=== PATIENT | female | born 1930 | race Caucasian/White ===

== ENCOUNTER → 2018-06-17 | Outpatient (CLI) | payer OTHER | LOC: RAD 11:38 | DX: J98.4 Other disorders of lung (principal); G70.00 Myasthenia gravis without (acute) exacerbation; I10 Essential (primary) hypertension; Z95.810 Presence of automatic (implantable) cardiac defibrillator ==

== ENCOUNTER → 2019-09-06 | Outpatient (CLI) | payer OTHER | LOC: SJCVCIMAG 10:59 | PROVIDERS: ATTEND Internal Medicine | DX: I07.1 Rheumatic tricuspid insufficiency (principal); I11.9 Hypertensive heart disease without heart failure; I48.0 Paroxysmal atrial fibrillation; I44.30 Unspecified atrioventricular block; E78.5 Hyperlipidemia, unspecified; G47.33 Obstructive sleep apnea (adult) (pediatric); G70.00 Myasthenia gravis without (acute) exacerbation; Z95.0 Presence of cardiac pacemaker ==

== ENCOUNTER → 2020-03-14 | Outpatient (CLI) | payer OTHER | LOC: SJCVC 10:20 | PROVIDERS: ATTEND Internal Medicine | DX: R94.31 Abnormal electrocardiogram [ECG] [EKG] (principal); I48.0 Paroxysmal atrial fibrillation; I44.30 Unspecified atrioventricular block; I10 Essential (primary) hypertension; G47.33 Obstructive sleep apnea (adult) (pediatric); G70.00 Myasthenia gravis without (acute) exacerbation; E78.00 Pure hypercholesterolemia, unspecified; Z95.0 Presence of cardiac pacemaker; Z79.899 Other long term (current) drug therapy; Z79.891 Long term (current) use of opiate analgesic ==

== ENCOUNTER → 2020-09-11 | Outpatient (CLI) | payer OTHER | LOC: SJCVC 10:32 | PROVIDERS: ATTEND Internal Medicine | DX: R94.31 Abnormal electrocardiogram [ECG] [EKG] (principal); I48.0 Paroxysmal atrial fibrillation; I44.30 Unspecified atrioventricular block; I10 Essential (primary) hypertension; E78.5 Hyperlipidemia, unspecified; G47.33 Obstructive sleep apnea (adult) (pediatric); G70.00 Myasthenia gravis without (acute) exacerbation; K21.9 Gastro-esophageal reflux disease without esophagitis; E78.00 Pure hypercholesterolemia, unspecified; E03.9 Hypothyroidism, unspecified; Z95.0 Presence of cardiac pacemaker; Z79.01 Long term (current) use of anticoagulants; Z79.899 Other long term (current) drug therapy ==

== ENCOUNTER → 2021-03-26 | Outpatient (CLI) | payer OTHER | LOC: SJCVCIMAG 07:45 | PROVIDERS: ATTEND Internal Medicine Cardiovascular Disease | DX: R94.31 Abnormal electrocardiogram [ECG] [EKG] (principal); I48.0 Paroxysmal atrial fibrillation; E78.5 Hyperlipidemia, unspecified; I10 Essential (primary) hypertension; G70.00 Myasthenia gravis without (acute) exacerbation; K21.9 Gastro-esophageal reflux disease without esophagitis; E78.00 Pure hypercholesterolemia, unspecified; E03.9 Hypothyroidism, unspecified; G47.33 Obstructive sleep apnea (adult) (pediatric); Z95.0 Presence of cardiac pacemaker; Z68.41 Body mass index [BMI] 40.0-44.9, adult; Z79.899 Other long term (current) drug therapy ==

== ENCOUNTER → 2021-04-12 | Outpatient (CLI) | payer OTHER ==
[~2021-04-12] VITALS: Ht 160 cm; Wt 111.4 kg
[~2021-04-12] MED LIST: AZELASTINE137 MCG/0. NASAL; CALCIUM CARBON600 MG PO; CARVEDILOL6.25 M1 PO; DETROL LA4 MG PO; FUROSEMIDE 20 M20 MG PO; LEVOTHYROXINE125 MC1 PO; LISINOPRIL20 MG PO; LORATIDINE 10 M10 M1 PO; MIRALAX17 GM PO; PREDNISOLONE 5 M5 M1 PO; PRESERVISION A1 EAC2 PO; SINGULAIR 10 MG10 MG PO; TRAMADOL 50 MG50 MG PO; VITAMIN C500 M2 PO; VITAMIN D325 MC5 PO; XARELTO15 MG PO; [UNRECOGNIZED DRUG - OTHER] IM
[2021-04-12 10:47] VITALS: BP 169/71
[2021-04-12 11:15] LABS: ABSOLUTE NEUTROPHILS 5.2 thou/uL (1.4-8.2); BASOPHILS 1.3 % (0.0-2.0); EOSINOPHILS 6.6 % (0.0-3.0); HEMATOCRIT 33.6 % (37.0-47.0); HEMOGLOBIN 10.9 gm/dL (12.0-15.0); MCHC 32.5 g/dL (28.0-37.0); MCV 83.1 fL (80.0-100.0); MONOCYTES 7.6 % (1.0-8.0); PLATELET COUNT 221 thou/uL (150-400); POLYS 68.5 % (36.0-66.0); RBC 4.04 mil/uL (4.20-5.00); RDW 15.2 % (10.5-14.5); WBC 7.5 thou/uL (4.0-11.0)
[2021-04-12 11:22] LABS: CREATININE 0.9 mg/dL (0.6-1.0)
[2021-04-12 11:28] LABS: ALBUMIN 3.2 g/dL (3.4-5.0); TOTAL BILIRUBIN 0.5 mg/dL (0.2-1.0); TOTAL PROTEIN 6.9 g/dL (6.4-8.2)
[2021-04-12 11:30] LABS: APTT 25.4 Seconds (24.5-32.8); INR 1.18; PROTIME 12.8 Seconds (10.5-12.1)
--- NOTE | 2021-04-29 08:23 | P ---
[facility] [place] [address] PROCEDURE REPORT Name: JUANY ALEX ANGELO Room #: [facility] [place] Mary.#: [id number] Admission: 04/12/21 Attend Phys: Krishna Pompa MD Discharge: Date of : 34 Report #: [id number] THIS REPORT FOR: cc: Kevin Grubbs,Krishna Hartley MD ~ DATE OF SERVICE: 04/12/2021 PACEMAKER GENERATOR EXCHANGE PREOPERATIVE DIAGNOSIS: Pacemaker ALYSHA. POSTOPERATIVE DIAGNOSIS: Pacemaker ALYSHA. DESCRIPTION OF PROCEDURE: The patient was brought to the EP laboratory in fasting and nonsedated state. She had undergone informed consent. She was prepped and draped in a standard fashion, receiving IV antibiotics prior to initiation of the procedure. Next, I injected lidocaine at the incision site. Incision was made. The chronic pocket was entered. Old device was disconnected. Leads were tested. New device was connected. Tug test performed. Pocket was irrigated with vancomycin. Pocket closed in 2 layers. Surgical glue was placed to outer skin layer. There were no procedure related complications. The explanted pacemaker was a Medtronic model number ADDRL1, serial number [id number]. The newly implanted device was a Medtronic model number W3DR01, serial number [id number]. Atrial lead was a Medtronic 5076, serial number [id number]. This lead was implanted on 06/14/2008. The RV lead was a 5024, 58 cm, serial number [id number] implanted on 07/23/1990. The atrial lead demonstrated P waves of 1.6 millivolts, pacing impedance of 458 ohms, pacing threshold 0.5 volts at 0.5 milliseconds. RV lead demonstrated R waves of 7.9 millivolts, pacing impedance of 1000 ohms, pacing threshold 3 volts at 0.6 milliseconds. The device was programmed back to the DDDR 60-130 mode. CONCLUSION: Successful pacemaker generator exchange. <ELECTRONICALLY SIGNED> By: Krishna Pompa MD 04/29/21 [id number] Krishna Pompa MD /nt
== END | disposition home or self-care (01) ==
LOC: CATH 07:49
PROVIDERS: ATTEND Internal Medicine Cardiovascular Disease
DX: Z45.010 Encounter for checking and testing of cardiac pacemaker pulse generator [battery] (principal); R00.1 Bradycardia, unspecified; I48.0 Paroxysmal atrial fibrillation; I10 Essential (primary) hypertension; E66.9 Obesity, unspecified; Z98.890 Other specified postprocedural states; Z79.899 Other long term (current) drug therapy; Z96.643 Presence of artificial hip joint, bilateral; Z20.822 Contact with and (suspected) exposure to COVID-19; Z90.49 Acquired absence of other specified parts of digestive tract; Z79.01 Long term (current) use of anticoagulants
CPT/HCPCS: 62110; 62900; 70005